=== PATIENT | female | born 1960 | race Caucasian/White ===

== ENCOUNTER 2017-02-01 12:02 | Inpatient (IN) | payer OTHER ==
[2017-02-01 12:41] VITALS: BMI 28.0
--- NOTE | 2017-02-01 17:16 | HP ---
COWS - Scale Resting Pulse: 1= ME 81-100 Sweatin= Chills/Flushing Restless Observation: 3= Extraneous Movement Pupil Size: 2= Moderately Dilated Bone or Joint Aches: 2= Severe Diffuse Aches Runny Nose/ Eye Tearin= Runny Nose/Eyes GI Upset > 30mins: 3= Vomiting/Diarrhea Tremor Observation: 2= Slight Tremor Visible Yawning Observation: 2= >3x During Session Anxiety or Irritability: 2=Irritable/Anxious Goose Flesh Skin: 0=Smooth Skin COWS Score: 20 CIWA Score - CIWA Score Nausea/Vomitin Muscle Tremors: 3 Anxiety: 3 Agitation: 3 Paroxysmal Sweats: 2 Orientation: 0-Oriented Tacttile Disturbances: 2-Mild Itch/Numbness/Burn Auditory Disturbances: 2-Mild Harshness/Frighten Visual Disturbances: 2-Mild Sensitivity Headache: 2-Mild CIWA-Ar Total Score: 22 Admission ROS BHS - HPI Chief Complaint: I NEED HELP TO STOP USING OXYCODONE AND ALCOHOL Allergies/Adverse Reactions: Allergies Allergy/AdvReac Type Severity Reaction Status Date / Time heparin Allergy Intermediate Verified 02/01/17 14:20 History of Present Illness: THIS 56 YEARS OLD WITH OXYCODDINE AND ALCOHOL DEPENDENCE,WITHDRAWAL SYMPTOM, LAST DETOX 01/20/17 [facility] SEIZURE LAST 20 YEARS AGO DEPRESSION NICOTINE DEPENDENCE LONGEST PERIOD OF SOBRIETY 2 YEARS Exam Limitations: No Limitations - Ebola screening Have you traveled outside of the country in the last 21 days: Yes Have you been sick,other than usual withdrawal symptoms: No - Review of Systems Constitutional: Chills, Diaphoresis, Loss of Appetite, Malaise, Night Sweats, Changes in sleep, Weakness EENT: reports: Tearing, Nose Congestion Respiratory: reports: No Symptoms reported (STHMA) Cardiac: reports: Palpitations GI: reports: Diarrhea, Nausea, Vomiting, Abdominal cramping : reports: No Symptoms Reported Musculoskeletal: reports: Back Pain, Joint Pain, Muscle Pain, Joint Stiffness Integumentary: reports: Dryness Neuro: reports: Headache, Tremors Endocrine: reports: No Symptoms Reported Hematology: reports: No Symptoms Reported Psychiatric: reports: Judgement Intact, Mood/Affect Appropiate, Orientated x3, Depressed Patient History - Patient Medical History Hx Anemia: No Hx Asthma: Yes (ON ALBUREOL INHALER) Hx Chronic Obstructive Pulmonary Disease (COPD): No Hx Cancer: No Hx Cardiac Disorders: No Hx Congestive Heart Failure: No Hx Hypertension: Yes (ON MED) Hx Hypercholesterolemia: Yes (ON MED) Hx Pacemaker: No HX Cerebrovascular Accident: No Hx Seizures: Yes (alcohol related once 20 yrs. ago) Hx Dementia: No Hx Diabetes: No Hx Gastrointestinal Disorders: Yes (colitis in 2015) Hx Liver Disease: Yes (FATTY LIVER) Hx Genitourinary Disorders: No Hx Sexually Transmitted Disorders: No Hx Renal Disease (ESRD): No Hx Thyroid Disease: No Hx Human Immunodeficiency Virus (HIV): No Hx Hepatitis C: No Hx Depression: Yes (ON MED) Hx Suicide Attempt: No Hx Bipolar Disorder: No Hx Schizophrenia: No Other Medical History: NO SUICIDAL,NO HOMICIDAL - Patient Surgical History Past Surgical History: Yes Hx Neurologic Surgery: No Hx Cataract Extraction: No Hx Cardiac Surgery: No Hx Lung Surgery: No Hx Breast Surgery: No Hx Breast Biopsy: No Hx Abdominal Surgery: No Hx Appendectomy: Yes (1977) Hx Cholecystectomy: No Hx Genitourinary Surgery: No Hx Section: No Hx Orthopedic Surgery: No Hx Hysterectomy: No Anesthesia Reaction: No - PPD History Previous Implant?: Yes Documented Results: Negative w/proof Implanted On Prior R Admission?: Yes Date: 09/22/16 Results: 0 mm PPD to be Administered?: No - Reproductive History Patient is a Female of Child Bearing Age (11 -55 yrs old): No Last Menstrual Period: 09/17/96 Patient : No - Smoking Cessation Smoking history: Current every day smoker Have you smoked in the past 12 months: Yes Aproximately how many cigarettes per day: 10 Cigars Per Day: 0 Hx Chewing Tobacco Use: No Initiated information on smoking cessation: Yes 'Breaking Loose' booklet given: 02/01/17 - Substance & Tx. History Hx Alcohol Use: Yes Hx Substance Use: Yes Substance Use Type: Alcohol, Opiates Hx Substance Use Treatment: Yes ([facility] 2 WEEKS AGO ?) - Substances Abused Oxycodone Route: Oral Frequency: Daily Amount used: 3-4 tabs. (10 mg.) Age of first use: 55 Date of Last Use: 01/30/17 Alcohol-four rita/vodka Route: Oral Frequency: Daily Amount used: 4 (24 oz.)/2 pts. Age of first use: 20 Date of Last Use: 01/31/17 Family Disease History - Family Disease History Family Disease History: Other: Father (ALCOHOL,) Admission Physical Exam [facility] - Vital Signs Vital Signs: Vital Signs - 24 hr 02/01/17 12:36 Temperature 98.6 F Pulse Rate 101 H Respiratory 18 Rate Blood Pressure 126/76 - Physical General Appearance: Yes: Moderate Distress, Tremorous, Irritable, Sweating, Anxious HEENTM: Yes: Hearing grossly Normal, Normal Voice, Pharynx Normal, Nasal Congestion Respiratory: Yes: Lungs Clear Neck: Yes: Within Normal Limits, Supple, Trachea in good position Breast: Yes: Breast Exam Deferred Cardiology: Yes: S1, S2, Tachycardia Abdominal: Yes: Within Normal Limits, Normal Bowel Sounds, Non Tender, Flat, Soft Genitourinary: Yes: Within Normal Limits Back: Yes: Normal Inspection, Muscle Spasm Musculoskeletal: Yes: full range of Motion, Back pain, Joint Stiffness, Muscle Pain Extremities: Yes: Normal Capillary Refill, Normal Range of Motion, Non-Tender, Tremors Neurological: Yes: attending anesthesiologist II-XII NML intact, Fully Oriented, Alert, Motor Strength 5/5 Integumentary: Yes: Dry Lymphatic: Yes: Within Normal Limits - Diagnostic (1) Alcohol dependence with withdrawal Current Visit: No Status: Chronic Qualifiers: Complication of substance-induced condition: uncomplicated Qualified Code(s): F10.230 - Alcohol dependence with withdrawal, uncomplicated (2) Hypercholesteremia Current Visit: No Status: Chronic Comment: "I DO NOT TAKE MEDICATION" (3) Hypertension Current Visit: No Status: Chronic Qualifiers: Hypertension type: essential hypertension Qualified Code(s): I10 - Essential (primary) hypertension (4) MDD (major depressive disorder) Current Visit: No Status: Chronic (5) Opioid dependence with withdrawal Current Visit: No Status: Chronic Comment: PERCOCET (6) Spinal stenosis in cervical region Current Visit: No Status: Chronic Comment: NEURONTIN (7) History of deep venous thrombosis (DVT) of distal vein of left lower extremity Current Visit: Yes Status: Acute Cleared for Admission [facility] - Detox or Rehab [facility] Level of Care: Medically Managed Detox Regimen/Protocol: Methadone/Librium [facility] Breath Alcohol Content Breath Alcohol Content: 0.142 Urine Pregancy Test - Result Urine Test Results: Negative- NO Line Present Urine Drug Screen - Results Drug Screen Negative: No Urine Drug Screen Results: BZO-Benzodiazepines, OXY-Oxycodone
[2017-02-01] MEDS ORDERED: LOPERAMIDE HCL 2 MG CAPSULE PO PRN (17:27)
[2017-02-01] MEDS ORDERED: MAGNESIUM CITRATE 300 ML BOTTLE PO PRN (17:27)
[2017-02-01] MEDS ORDERED: ACETAMINOPHEN 325 MG TABLET (FP) PO PRN (17:27)
[2017-02-01] MEDS ORDERED: IBUPROFEN 400 MG TABLET (FP) PO PRN (17:27)
[2017-02-01] MEDS ORDERED: MAGNESIUM HYDROX 2400MG/30ML ORAL SUSPENSION 30 ML CUP PO PRN (17:27)
[2017-02-01] MEDS ORDERED: MAG HYDROX/AL HYDROX/SIMETH 30 ML UNIT-DOSE CUP PO PRN (17:27)
[2017-02-01] MEDS ORDERED: MENTHOL/PHENOL 1 EACH UD MM PRN (17:27)
[2017-02-01] MEDS ORDERED: P-EPHED 60MG/TRIPROLIDI 2.5MG TABLET PO PRN (17:27)
[2017-02-01] MEDS ORDERED: guaiFENesin/D-METHORPHAN HB 10 ML UNIT-DOSE CUPS PO PRN (17:27)
[2017-02-01] MEDS ORDERED: ALBUTEROL SO4 6.7 GM HFA INHALER IH PRN (17:29)
[2017-02-01] MEDS ORDERED: chlordiazePOXIDE HCL 25 MG CAPSULE PO ONE (18:00)
[2017-02-01] MEDS ORDERED: METHADONE HCL 10 MG TABLET (FOR DETOX USE ONLY) PO ONE ×2 (18:00→23:00)
[2017-02-01] MEDS: SODIUM CHLORIDE NASAL SPRAY 44 ML BOTTLE NS PRN (19:32)
[2017-02-01] MEDS: chlordiazePOXIDE HCL 25 MG CAPSULE PO PRN (19:32)
[2017-02-01 20:00] LABS: URINE APPEARANCE CLOUDY; URINE BILIRUBIN NEGATIVE (NEGATIVE); URINE COLOR YELLOW; URINE GLUCOSE (UA) NEGATIVE (NEGATIVE); URINE KETONE NEGATIVE (NEGATIVE); URINE LEUK ESTERASE NEGATIVE (NEGATIVE); URINE NITRITE NEGATIVE (NEGATIVE); URINE UROBILINOGEN NEGATIVE E.U./dl (0.2-1.0)
[2017-02-01 20:03] LABS: URINE BLOOD 1+ (NEGATIVE); URINE PROTEIN 1+ (NEGATIVE)
[2017-02-01 20:15] LABS: URINE BACTERIA RARE /hpf (NONE SEEN); URINE MUCUS RARE; URINE RBC 1 /hpf (0-3); URINE WBC 2 /hpf (3-5)
[2017-02-01] MEDS: ATORVASTATIN CA 40 MG TABLET (FP) PO SCH (22:33)
[2017-02-01] MEDS: THIAMINE HCL 100 MG TABLET (FP) PO SCH (22:33)
[2017-02-01] MEDS: diphenhydrAMINE HCL 50 MG CAPSULE PO PRN (22:33)
[2017-02-01] MEDS: chlordiazePOXIDE HCL 25 MG CAPSULE PO SCH (22:33)
[2017-02-02] MEDS: chlordiazePOXIDE HCL 25 MG CAPSULE PO SCH ×4 (05:46→22:10)
[2017-02-02] MEDS: SODIUM CHLORIDE NASAL SPRAY 44 ML BOTTLE NS PRN (05:48)
[2017-02-02] MEDS: chlordiazePOXIDE HCL 25 MG CAPSULE PO PRN ×2 (07:48→13:03)
[2017-02-02] MEDS ORDERED: METHADONE HCL 10 MG TABLET (FOR DETOX USE ONLY) PO SCH (10:00)
--- NOTE | 2017-02-02 10:09 | PN ---
S CIWA - CIWA Score Nausea/Vomitin Muscle Tremors: 3 Anxiety: 3 Agitation: 3 Paroxysmal Sweats: 1-Minimal Palms Moist Orientation: 0-Oriented Tacttile Disturbances: 1-Very Mild Itch/Numbness Auditory Disturbances: 1-Very Mild Visual Disturbances: 1-Very Mild Sensitivity Headache: 2-Mild CIWA-Ar Total Score: 18 BHS COWS - Scale Resting Pulse: 1= [place] 81-100 Sweatin= Chills/Flushing Restless Observation: 3= Extraneous Movement Pupil Size: 1= Pupils >than Normal Bone or Joint Aches: 2= Severe Diffuse Aches Runny Nose/ Eye Tearin= Runny Nose/Eyes GI Upset > 30mins: 2= Nausea/Diarrhea Tremor Observation of Outstretched Hands: 2= Slight Tremor Visible Yawning Observation: 1= 1-2x During Session Anxiety or Irritability: 2=Irritable/Anxious Goose Flesh Skin: 0=Smooth Skin COWS Score: 17 S Progress Note (SOAP) Subjective: ALERT,IRRITABLE,ANXIOUS,INTERRUPTED SLEEP,TREMOR,PAIN IN THE BODY AND BACK Objective: 02/02/17 10:07 Vital Signs Temperature 97.1 F L 02/02/17 09:49 Pulse Rate 768 H 02/02/17 09:49 Respiratory Rate 18 02/02/17 09:49 Blood Pressure 126/79 02/02/17 09:49 O2 Sat by Pulse Oximetry (%) EKG NSR,NORMAL ECG Laboratory Last Values Urine Color Yellow 02/01/17 19:45 Urine Appearance Cloudy 02/01/17 19:45 Urine pH 6.0 (5.0-8.0) 02/01/17 19:45 Ur Specific [place] 1.016 (1.001-1.035) 02/01/17 19:45 Urine Protein 1+ (NEGATIVE) H 02/01/17 19:45 Urine Glucose (UA) Negative (NEGATIVE) 02/01/17 19:45 Urine Ketones Negative (NEGATIVE) 02/01/17 19:45 Urine Blood 1+ (NEGATIVE) H 02/01/17 19:45 Urine Nitrite Negative (NEGATIVE) 02/01/17 19:45 Urine Bilirubin Negative (NEGATIVE) 02/01/17 19:45 Urine Urobilinogen Negative E.U./dl (0.2-1.0) 02/01/17 19:45 Ur Leukocyte Esterase Negative (NEGATIVE) 02/01/17 19:45 Urine RBC 1 /hpf (0-3) 02/01/17 19:45 Urine WBC 2 /hpf (3-5) 02/01/17 19:45 Ur Epithelial Cells Moderate /hpf (FEW) 02/01/17 19:45 Urine Bacteria Rare /hpf (NONE SEEN) 02/01/17 19:45 Urine Mucus Rare 02/01/17 19:45 LABS PENDING Assessment: 02/02/17 10:08 WITHDRAWAL SYMPTOM Plan: CONTINUE DETOX
[2017-02-02] MEDS: amLODIPine BESYLATE 10 MG TABLET (FP) PO SCH (10:19)
[2017-02-02] MEDS: PRENATAL VITAMINS W/ FOLIC ACID TABLET (FP) PO SCH (10:19)
[2017-02-02] MEDS: ASPIRIN COATED 81 MG TABLET.EC PO SCH (10:19)
[2017-02-02] MEDS: NICOTINE 21 MG/24 HOURS TOPICAL PATCH TD SCH (10:22)
[2017-02-02 10:32] LABS: MCH 32.8 pg (25.7-33.7); MCHC 33.3 g/dl (32.0-36.0); MEAN CELL VOLUME 98.4 fl (80-96); MEAN PLT VOLUME 8.6 fl (7.5-11.1); PLATELET COUNT 378 K/MM3 (134-434); RDW 15.3 % (11.6-15.6); WHITE BLOOD COUNT 9.6 K/mm3 (4.0-10.0)
[2017-02-02 11:19] LABS: ALK PHOS 75 U/L (45-117); ANION GAP 13 (8-16); BILIRUBIN,TOTAL 0.5 mg/dL (0.2-1.0); CALCIUM 8.3 mg/dL (8.5-10.1); CO2 26 mmol/L (21-32); CREATININE 0.8 mg/dL (0.55-1.02); GLUCOSE,RANDOM 174 mg/dL (74-106); SGOT/AST 32 U/L (15-37); SGPT/ALT 33 U/L (12-78); TOT PROT 7.6 g/dl (6.4-8.2)
--- NOTE | 2017-02-02 11:55 | PN ---
BHS Progress Note Note: INITIAL GLUCOSE 174 WILL GIVE GLUCERNA 1 CAN PO BID INSTEAD OF ENSURE
--- NOTE | 2017-02-02 13:35 | CONSULT ---
[facility] Psychiatric Consult - Data Date of interview: 02/02/17 Admission source: [facility] Identifying data: Readmission to [facility] for this 56 y/o female seeking detox treatment on for opioid and alcohol dependence.Patient is without children,currently homeless,unemployed and supported on food stamps. Substance Abuse History: - Smoking Cessation. Smoking history: Current every day smoker. Have you smoked in the past 12 months: Yes. Aproximately how many cigarettes per day: 10. Cigars Per Day: 0. Hx Chewing Tobacco Use: No. Initiated information on smoking cessation: Yes. 'Breaking Loose' booklet given : 02/01/17. - Substance & Tx. History. Hx Alcohol Use: Yes. Hx Substance Use : Yes. Substance Use Type: Alcohol, Opiates. Hx Substance Use Treatment: Yes ( [facility] 2 WEEKS AGO ?). - Substances Abused. Oxycodone. Route: Oral. Frequency: Daily. Amount used: 3-4 tabs. (10 mg.). Age of first use: 55. Date of Last Use: 01/30/17. Alcohol-four rita/vodka. Route: Oral. Frequency: Daily. Amount used: 4 (24 oz.)/2 pts. Age of first use: 20. Date of Last Use: 01/31/17. Confirmed by patient. Medical History: Hypertension,withdrawal-related sizures,bronchial asthma, COPD, psoriasis,fatty liver,hypercholesterolemia,colitis,spinal stenosis and a history of CVA (no residual effects) in 2012. Psychiatric History: Onset of psychiatric illness :late 20's.Diagnosed with MDD.Currently prescribed celexa 20 mg/day.No OPD care providers.Ms Belcher admits to non-adherence to psychiatric aftercare.She relies on emergency room visits for scripts.Past psychiatric hospitalizations at [facility] and [facility].Distant history of suicide attempt via overdose with medications (years ago). Physical/Sexual Abuse/Trauma History: Patient denies. Mental Status Exam - Mental Status Exam Alert and Oriented to: Time, Place, Person Cognitive Function: Good Patient Appearance: Disheveled Mood: Withdrawn, Apprehensive, Hopeful Affect: Mood Congruent Patient Behavior: Fatigued, Appropriate, Cooperative Speech Pattern: Clear Voice Loudness: Normal Thought Process: Goal Oriented Thought Disorder: Not Present Hallucinations: Denies Suicidal Ideation: Denies Homicidal Ideation: Denies Insight/Judgement: Poor Sleep: Poorly, Difficulty falling asleep (requesting benadryl) Appetite: Fair Muscle strength/Tone: Normal Gait/Station: Normal Psychiatric Findings - Problem List ([place] 1, 2,3) (1) Alcohol dependence with withdrawal Current Visit: Yes Status: Acute Qualifiers: Complication of substance-induced condition: uncomplicated Qualified Code(s): F10.230 - Alcohol dependence with withdrawal, uncomplicated (2) Opioid dependence with withdrawal Current Visit: Yes Status: Acute Comment: PERCOCET (3) Nicotine dependence Current Visit: Yes Status: Acute Qualifiers: Nicotine product type: cigarettes Substance use status: uncomplicated Qualified Code(s): F17.210 - Nicotine dependence, cigarettes, uncomplicated (4) MDD (major depressive disorder) Current Visit: Yes Status: Acute (5) Hypercholesteremia Current Visit: Yes Status: Chronic Comment: "I DO NOT TAKE MEDICATION" (6) Hypertension Current Visit: Yes Status: Chronic Qualifiers: Hypertension type: essential hypertension Qualified Code(s): I10 - Essential (primary) hypertension (7) Spinal stenosis in cervical region Current Visit: Yes Status: Chronic Comment: NEURONTIN (8) Colitis Current Visit: No Status: Acute (9) COPD (chronic obstructive pulmonary disease) Current Visit: Yes Status: Chronic Qualifiers: COPD type: emphysema Emphysema type: unilateral Qualified Code(s ): J43.0 - Unilateral pulmonary emphysema [MacLeod's syndrome] (10) Fatty liver Current Visit: Yes Status: Chronic (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
--- NOTE | 2017-02-02 18:23 | EKG ---
Test Reason : Blood Pressure : / mmHG Vent. Rate : 068 BPM Atrial Rate : 068 BPM P-R Int : 160 ms QRS Dur : 078 ms QT Int : 406 ms P-R-T Axes : 059 036 056 degrees QTc Int : 431 ms NORMAL SINUS RHYTHM NORMAL ECG WHEN COMPARED WITH ECG OF 01-FEB-2017 17:48, PREMATURE VENTRICULAR COMPLEXES ARE NO LONGER PRESENT VENT. RATE HAS DECREASED BY 46 BPM Confirmed by RANDALL SOLIS, SHARIF ([id number]) on 02/02/2017 6:22:45 PM Referred By: Confirmed By:SHARIF PEREIRA MD
--- NOTE | 2017-02-02 18:30 | EKG ---
Test Reason : Blood Pressure : / mmHG Vent. Rate : 114 BPM Atrial Rate : 114 BPM P-R Int : 154 ms QRS Dur : 078 ms QT Int : 332 ms P-R-T Axes : 074 032 071 degrees QTc Int : 457 ms SINUS TACHYCARDIA WITH OCCASIONAL PREMATURE VENTRICULAR COMPLEXES OTHERWISE NORMAL ECG NO PREVIOUS ECGS AVAILABLE Confirmed by RANDALL SOLIS, SHARIF ([id number]) on 02/02/2017 6:29:52 PM Referred By: Confirmed By:SHARIF PEREIRA MD
[2017-02-02] MEDS: ATORVASTATIN CA 40 MG TABLET (FP) PO SCH (22:10)
[2017-02-02] MEDS: diphenhydrAMINE HCL 50 MG CAPSULE PO PRN (22:10)
[2017-02-02] MEDS: THIAMINE HCL 100 MG TABLET (FP) PO SCH (22:11)
[2017-02-03] MEDS: diphenhydrAMINE HCL 50 MG CAPSULE PO PRN ×2 (00:26→22:09)
[2017-02-03] MEDS: chlordiazePOXIDE HCL 25 MG CAPSULE PO PRN ×2 (00:27→12:00)
[2017-02-03] MEDS: chlordiazePOXIDE HCL 25 MG CAPSULE PO SCH ×3 (05:19→17:27)
[2017-02-03] MEDS: METHADONE HCL 5 MG TABLET (FOR DETOX USE ONLY) PO SCH (10:12)
[2017-02-03] MEDS: PRENATAL VITAMINS W/ FOLIC ACID TABLET (FP) PO SCH (10:12)
[2017-02-03] MEDS: CITALOPRAM HYDROBROMIDE 20 MG TABLET (FP) PO SCH (10:13)
[2017-02-03] MEDS: ASPIRIN COATED 81 MG TABLET.EC PO SCH (10:13)
[2017-02-03] MEDS: amLODIPine BESYLATE 10 MG TABLET (FP) PO SCH (10:13)
[2017-02-03] MEDS: NICOTINE 21 MG/24 HOURS TOPICAL PATCH TD SCH (10:13)
[2017-02-03] MEDS: SODIUM CHLORIDE NASAL SPRAY 44 ML BOTTLE NS PRN (12:02)
--- NOTE | 2017-02-03 14:09 | PN ---
S CIWA - CIWA Score Nausea/Vomitin Muscle Tremors: 3 Anxiety: 3 Agitation: 3 Paroxysmal Sweats: No Perspiration Orientation: 0-Oriented Tacttile Disturbances: 1-Very Mild Itch/Numbness Auditory Disturbances: 0-None Visual Disturbances: 0-None Headache: 2-Mild CIWA-Ar Total Score: 14 BHS COWS - Scale Resting Pulse: 0= [place] 80 or Below Sweatin= Chills/Flushing Restless Observation: 3= Extraneous Movement Pupil Size: 0= Normal to Room Light Bone or Joint Aches: 1= Mild Discomfort Runny Nose/ Eye Tearin= Runny Nose/Eyes GI Upset > 30mins: 3= Vomiting/Diarrhea Tremor Observation of Outstretched Hands: 2= Slight Tremor Visible Yawning Observation: 0= None Anxiety or Irritability: 2=Irritable/Anxious Goose Flesh Skin: 0=Smooth Skin COWS Score: 14 S Progress Note (SOAP) Subjective: Anxious, nauseas, diarrhea, tremor, restless, interrupted sleep; c/o psoriasis on hands and requesting hydrocortisone cream Objective: 02/03/17 14:06 Last Vital Signs Temp Pulse Resp BP Pulse Ox 98.2 F 75 18 111/67 02/03/17 13:44 02/03/17 13:44 02/03/17 13:44 02/03/17 13:44 Laboratory Tests 02/01/17 02/02/17 02/02/17 19:45 06:20 06:20 WBC 9.6 RBC 4.22 Hgb 13.8 Hct 41.5 MCV 98.4 H MCHC 33.3 RDW 15.3 Plt Count 378 D MPV 8.6 Sodium 139 Potassium 3.6 Chloride 100 Carbon Dioxide 26 Anion Gap 13 BUN 17 D Creatinine 0.8 Creat Clearance w eGFR > 60 Random Glucose 174 H D Calcium 8.3 L Total Bilirubin 0.5 D AST 32 D ALT 33 D Alkaline Phosphatase 75 D Total Protein 7.6 Albumin 4.0 Urine Color Yellow Urine Appearance Cloudy Urine pH 6.0 Ur Specific [place] 1.016 Urine Protein 1+ H Urine Glucose (UA) Negative Urine Ketones Negative Urine Blood 1+ H Urine Nitrite Negative Urine Bilirubin Negative Urine Urobilinogen Negative Ur Leukocyte Esterase Negative Urine RBC 1 Urine WBC 2 Ur Epithelial Cells Moderate Urine Bacteria Rare Urine Mucus Rare RPR Titer 02/02/17 06:20 WBC RBC Hgb Hct MCV MCHC RDW Plt Count MPV Sodium Potassium Chloride Carbon Dioxide Anion Gap BUN Creatinine Creat Clearance w eGFR Random Glucose Calcium Total Bilirubin AST ALT Alkaline Phosphatase Total Protein Albumin Urine Color Urine Appearance Urine pH Ur Specific [place] Urine Protein Urine Glucose (UA) Urine Ketones Urine Blood Urine Nitrite Urine Bilirubin Urine Urobilinogen Ur Leukocyte Esterase Urine RBC Urine WBC Ur Epithelial Cells Urine Bacteria Urine Mucus RPR Titer Nonreactive Labs noted: UA with 1+ protein and 1+ blood c/o psoriasis on hands and requesting hydrocortisone cream Assessment: 02/03/17 14:09 Withdrawal symptoms Noted with proteinuria and hematuria c/o psoriasis on hands Plan: Continue detox Proteinuria and hematuria: encouraged to drink lots of water, repeat UA Psoriasis on hands: hydrocortisone cream 1% bid to affected areas on hands
[2017-02-03] MEDS: THIAMINE HCL 100 MG TABLET (FP) PO SCH (22:08)
[2017-02-03] MEDS: chlordiazePOXIDE 5 MG CAPSULE PO SCH (22:09)
[2017-02-03] MEDS: ATORVASTATIN CA 40 MG TABLET (FP) PO SCH (22:09)
[2017-02-03] MEDS: HYDROCORTISONE 0.5% TOPICAL CREAM 30 GM TUBE TP SCH (22:11)
[2017-02-04] MEDS: chlordiazePOXIDE HCL 25 MG CAPSULE PO PRN ×2 (00:45→14:15)
[2017-02-04] MEDS: diphenhydrAMINE HCL 50 MG CAPSULE PO PRN ×2 (00:45→22:22)
[2017-02-04] MEDS: chlordiazePOXIDE 5 MG CAPSULE PO SCH ×3 (05:28→17:20)
[2017-02-04] MEDS: SODIUM CHLORIDE NASAL SPRAY 44 ML BOTTLE NS PRN ×2 (05:30→22:20)
--- NOTE | 2017-02-04 09:38 | PN ---
BHS Progress Note (SOAP) Subjective: shakes sweats interrupted sleep Objective: 02/04/17 09:37 Vital Signs Temperature 97.9 F 02/04/17 05:51 Pulse Rate 66 02/04/17 05:51 Respiratory Rate 16 02/04/17 05:51 Blood Pressure 114/72 02/04/17 05:51 O2 Sat by Pulse Oximetry (%) awake/alert ambulating no acute distress Assessment: 02/04/17 09:37 withdrawal sx Plan: continue detox increase fluids
[2017-02-04] MEDS: ASPIRIN COATED 81 MG TABLET.EC PO SCH (10:37)
[2017-02-04] MEDS: PRENATAL VITAMINS W/ FOLIC ACID TABLET (FP) PO SCH (10:37)
[2017-02-04] MEDS: CITALOPRAM HYDROBROMIDE 20 MG TABLET (FP) PO SCH (10:38)
[2017-02-04] MEDS: METHADONE HCL 5 MG TABLET (FOR DETOX USE ONLY) PO SCH (10:38)
[2017-02-04] MEDS: amLODIPine BESYLATE 10 MG TABLET (FP) PO SCH (10:38)
[2017-02-04] MEDS: NICOTINE 21 MG/24 HOURS TOPICAL PATCH TD SCH (10:39)
[2017-02-04] MEDS: HYDROCORTISONE 0.5% TOPICAL CREAM 30 GM TUBE TP SCH ×2 (10:42→22:19)
[2017-02-04] MEDS: chlordiazePOXIDE HCL 10 MG CAPSULE PO SCH (22:19)
[2017-02-04] MEDS: ATORVASTATIN CA 40 MG TABLET (FP) PO SCH (22:19)
[2017-02-04] MEDS: THIAMINE HCL 100 MG TABLET (FP) PO SCH (22:20)
[2017-02-05] MEDS: diphenhydrAMINE HCL 50 MG CAPSULE PO PRN (00:35)
[2017-02-05] MEDS: chlordiazePOXIDE HCL 10 MG CAPSULE PO SCH ×3 (05:20→17:24)
[2017-02-05] MEDS ORDERED: chlordiazePOXIDE 5 MG CAPSULE ONE (08:57)
--- NOTE | 2017-02-05 09:37 | PN ---
S Progress Note (SOAP) Subjective: ALERT,IRRITABLE,ANXIOUS,INTERRUPTED SLEEP Objective: 02/05/17 09:37 Vital Signs Temperature 99 F 02/05/17 05:48 Pulse Rate 72 02/05/17 05:48 Respiratory Rate 18 02/05/17 05:48 Blood Pressure 103/60 02/05/17 05:48 O2 Sat by Pulse Oximetry (%) Assessment: 02/05/17 09:37 WITHDRAWAL SYMPTOM Plan: CONTINUE DETOX,DISCHARGE IN AM
[2017-02-05] MEDS ORDERED: METHADONE HCL 10 MG TABLET (FOR DETOX USE ONLY) PO SCH (10:00)
[2017-02-05] MEDS: PRENATAL VITAMINS W/ FOLIC ACID TABLET (FP) PO SCH (10:47)
[2017-02-05] MEDS: amLODIPine BESYLATE 10 MG TABLET (FP) PO SCH (10:48)
[2017-02-05] MEDS: ASPIRIN COATED 81 MG TABLET.EC PO SCH (10:48)
[2017-02-05] MEDS: CITALOPRAM HYDROBROMIDE 20 MG TABLET (FP) PO SCH (10:48)
[2017-02-05] MEDS: NICOTINE 21 MG/24 HOURS TOPICAL PATCH TD SCH (10:49)
[2017-02-05] MEDS: HYDROCORTISONE 0.5% TOPICAL CREAM 30 GM TUBE TP SCH ×2 (10:53→22:04)
[2017-02-05] MEDS: hydrOXYzine PAMOATE 50 MG CAPSULE (FP) PO PRN ×2 (17:24→22:04)
[2017-02-05] MEDS: ATORVASTATIN CA 40 MG TABLET (FP) PO SCH (22:04)
[2017-02-05] MEDS: THIAMINE HCL 100 MG TABLET (FP) PO SCH (22:04)
[2017-02-05] MEDS: SODIUM CHLORIDE NASAL SPRAY 44 ML BOTTLE NS PRN (22:05)
[2017-02-06] MEDS ORDERED: METHADONE HCL 5 MG TABLET (FOR DETOX USE ONLY) PO SCH (06:00)
--- NOTE | 2017-02-06 08:34 | DS ---
[facility] Detox Discharge Summary Admission Date: 02/01/17 Discharge Date: 02/06/17 - History Present History: Alcohol Dependence, Opioid Dependence - Physical Exam Results Vital Signs: Vital Signs Temperature 97.7 F 02/06/17 06:37 Pulse Rate 67 02/06/17 06:37 Respiratory Rate 16 02/06/17 06:37 Blood Pressure 98/65 02/06/17 06:37 O2 Sat by Pulse Oximetry (%) - Treatment Hospital Course: Detox Protocol Followed, Detoxed Safely, Responded well, Discharged Condition Good, Rehab Referral Accepted - Medication Discharge Medications: Ambulatory Orders Citalopram Hydrobromide [Celexa -] 20 mg PO DAILY 09/20/16 Aspirin [Aspirin EC] 81 mg PO DAILY #30 tablet. 09/25/16 Albuterol Sulfate Inhaler - [Ventolin Hfa Inhaler -] 2 inh PO Q4H PRN 02/01/17 Amlodipine Besylate [Norvasc -] 10 mg PO DAILY 02/01/17 Atorvastatin Ca [Lipitor] 40 mg PO HS 02/01/17 Folic Acid - 1 mg PO DAILY 02/01/17 Hydrocortisone 1% Ointment [Hytone 1% Ointment -] 1 applic TP BID 02/01/17 Multivitamins [Tab-A-Vit -] 1 tab PO DAILY 02/01/17 Citalopram Hydrobromide [Celexa -] 20 mg PO DAILY #30 tablet 02/02/17 - Diagnosis (1) Alcohol dependence with withdrawal Current Visit: Yes Status: Chronic Qualifiers: Complication of substance-induced condition: uncomplicated Qualified Code(s): F10.230 - Alcohol dependence with withdrawal, uncomplicated (2) History of deep venous thrombosis (DVT) of distal vein of left lower extremity Current Visit: No Status: Resolved (3) MDD (major depressive disorder) Current Visit: Yes Status: Acute (4) Nicotine dependence Current Visit: Yes Status: Chronic Qualifiers: Nicotine product type: cigarettes Substance use status: uncomplicated Qualified Code(s): F17.210 - Nicotine dependence, cigarettes, uncomplicated (5) Opioid dependence with withdrawal Current Visit: Yes Status: Chronic (6) COPD (chronic obstructive pulmonary disease) Current Visit: Yes Status: Chronic Qualifiers: COPD type: emphysema Emphysema type: unilateral Qualified Code(s ): J43.0 - Unilateral pulmonary emphysema [MacLeod's syndrome] (7) Fatty liver Current Visit: Yes Status: Chronic (8) Hypercholesteremia Current Visit: Yes Status: Chronic (9) Hypertension Current Visit: Yes Status: Chronic Qualifiers: Hypertension type: essential hypertension Qualified Code(s): I10 - Essential (primary) hypertension (10) Insomnia Current Visit: Yes Status: Chronic (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
[2017-02-06] MEDS: hydrOXYzine PAMOATE 50 MG CAPSULE (FP) PO PRN (10:17)
[2017-02-06] MEDS: NICOTINE 21 MG/24 HOURS TOPICAL PATCH TD SCH (10:18)
[2017-02-06] MEDS: PRENATAL VITAMINS W/ FOLIC ACID TABLET (FP) PO SCH (10:18)
[2017-02-06] MEDS: CITALOPRAM HYDROBROMIDE 20 MG TABLET (FP) PO SCH (10:18)
[2017-02-06] MEDS: ASPIRIN COATED 81 MG TABLET.EC PO SCH (10:18)
[2017-02-06] MEDS: HYDROCORTISONE 0.5% TOPICAL CREAM 30 GM TUBE TP SCH (10:18)
[2017-02-06] MEDS: amLODIPine BESYLATE 10 MG TABLET (FP) PO SCH (10:18)
[2017-02-06 10:25] VITALS: BP 102/69; PULSE 63; TEMP 98.4
== END 2017-02-06 10:35 | disposition home or self-care (01) | DRG 773 ==
LOC: YASAS 12:02 → Y6N 15:04
PROVIDERS: ADMIT Internal Medicine; ATTEND Internal Medicine
PROC: HZ2ZZZZ Detoxification Services for Substance Abuse Treatment (ICD-10-PCS; principal; 2017-02-01)
DX: F11.23 Opioid dependence with withdrawal (principal); F10.230 Alcohol dependence with withdrawal, uncomplicated; F17.210 Nicotine dependence, cigarettes, uncomplicated; F33.9 Major depressive disorder, recurrent, unspecified; F19.24 Other psychoactive substance dependence with psychoactive substance-induced mood disorder; F41.8 Other specified anxiety disorders; J45.909 Unspecified asthma, uncomplicated; J43.0 Unilateral pulmonary emphysema [MacLeod's syndrome]; K76.0 Fatty (change of) liver, not elsewhere classified; E78.00 Pure hypercholesterolemia, unspecified; G47.00 Insomnia, unspecified; L40.9 Psoriasis, unspecified; M48.02 Spinal stenosis, cervical region; R80.9 Proteinuria, unspecified; R31.9 Hematuria, unspecified; I10 Essential (primary) hypertension; Z86.718 Personal history of other venous thrombosis and embolism; Z86.69 Personal history of other diseases of the nervous system and sense organs; Z86.73 Personal history of transient ischemic attack (TIA), and cerebral infarction without residual deficits; Z87.19 Personal history of other diseases of the digestive system
CPT/HCPCS: 36415; 80053; 81003; 81015; 85027; 86593; 93005; 93010

== ENCOUNTER 2020-11-30 09:41 | Inpatient (IN) | payer OTHER ==
[2020-11-30 11:22] VITALS: BMI 28.3
[2020-11-30] MEDS ORDERED: NICOTINE POLACRILEX 2 MG GUM BUC PRN (12:20)
[2020-11-30] MEDS ORDERED: METHOCARBAMOL 500 MG TABLET PO PRN (12:20)
[2020-11-30] MEDS ORDERED: MAG HYDROX/AL HYDROX/SIMETH 30 ML UNIT-DOSE CUP PO PRN (12:20)
[2020-11-30] MEDS ORDERED: MENTHOL/PHENOL 1 EACH UD MM PRN (12:20)
[2020-11-30] MEDS ORDERED: MAGNESIUM HYDROX 2400MG/30ML ORAL SUSPENSION 30 ML CUP PO PRN (12:20)
[2020-11-30] MEDS ORDERED: MAGNESIUM CITRATE 300 ML BOTTLE PO PRN (12:20)
[2020-11-30] MEDS ORDERED: BISMUTH SUBSALICYLATE 524 MG/30 ML UD PO PRN (12:20)
[2020-11-30] MEDS ORDERED: ONDANSETRON *ODT* 4 MG TABLET SL PRN (12:20)
[2020-11-30] MEDS ORDERED: IBUPROFEN 400 MG TABLET (FP) PO PRN (12:20)
[2020-11-30] MEDS ORDERED: ACETAMINOPHEN 325 MG TABLET (FP) PO PRN ×2 (12:20)
[2020-11-30] MEDS ORDERED: ALBUTEROL SO4 HFA INHALER IH PRN (12:23)
[2020-11-30] MEDS ORDERED: ACETAMINOPHEN 325 MG TABLET (FP) ONE (13:09)
[2020-11-30] MEDS: chlordiazePOXIDE HCL 25 MG CAPSULE PO PRN ×2 (13:13→15:37)
[2020-11-30] MEDS ORDERED: LIDOCAINE 5% TOPICAL PATCH TP SCH (13:45)
[2020-11-30] MEDS: hydrOXYzine PAMOATE 25 MG CAPSULE (FP) PO SCH ×2 (13:55→18:00)
[2020-11-30] MEDS ORDERED: MELATONIN 5 MG TABLETS PO PRN (14:26)
[2020-11-30] MEDS ORDERED: chlordiazePOXIDE HCL 25 MG CAPSULE PO SCH (17:00)
[2020-11-30 17:38] LABS: HEMATOCRIT 38.5 % (32.4-45.2); HEMOGLOBIN 12.8 GM/dL (10.7-15.3); MCH 32.5 pg (25.7-33.7); MCHC 33.2 g/dl (32.0-36.0); MEAN CELL VOLUME 97.8 fl (80-96); MEAN PLT VOLUME 8.5 fl (7.5-11.1); PLATELET COUNT 325 K/MM3 (134-434); RBC 3.94 M/mm3 (3.60-5.2); RDW 14.8 % (11.6-15.6); WHITE BLOOD COUNT 11.9 K/mm3 (4.0-10.0)
[2020-11-30 17:39] LABS: POTASSIUM 3.7 mmol/L (3.5-5.1)
[2020-11-30 17:45] LABS: ALBUMIN 3.9 g/dl (3.4-5.0); CALCIUM 9.2 mg/dL (8.5-10.1)
[2020-11-30 17:48] LABS: BILIRUBIN,TOTAL 0.6 mg/dL (0.2-1); TOT PROT 7.9 g/dl (6.4-8.2)
[2020-11-30 19:36] VITALS: BP 155/90; PULSE 101; TEMP 95.7
[2020-11-30] MEDS ORDERED: MELATONIN 5 MG TABLETS PO SCH (22:00)
[2020-11-30] MEDS ORDERED: ATORVASTATIN CA 40 MG TABLET (FP) PO SCH (22:00)
[2020-11-30] MEDS ORDERED: THIAMINE HCL 100 MG TABLET (FP) PO SCH (22:00)
[2020-11-30] MEDS ORDERED: LIDOCAINE PATCH REMOVAL MC SCH (22:00)
[2020-12-01] MEDS ORDERED: CITALOPRAM HYDROBROMIDE 20 MG TABLET PO SCH (10:00)
[2020-12-01] MEDS ORDERED: PRENATAL VITAMINS W/ FOLIC ACID TABLET (FP) PO SCH (10:00)
[2020-12-01] MEDS ORDERED: NICOTINE 14 MG/24 HOURS TOPICAL PATCH TD SCH (10:00)
[2020-12-01] MEDS ORDERED: ASPIRIN COATED 81 MG TABLET.EC PO SCH (10:00)
[2020-12-01] MEDS ORDERED: NIFEdipine E.R. 30 MG TABLET PO SCH (10:00)
[2020-12-02] MEDS ORDERED: chlordiazePOXIDE HCL 25 MG CAPSULE PO SCH (05:00)
[2020-12-03] MEDS ORDERED: chlordiazePOXIDE HCL 10 MG CAPSULE PO PRN
[2020-12-03] MEDS ORDERED: chlordiazePOXIDE HCL 10 MG CAPSULE PO SCH (05:00)
[2020-12-04] MEDS ORDERED: chlordiazePOXIDE HCL 10 MG CAPSULE PO SCH (05:00)
[2020-12-05] MEDS ORDERED: chlordiazePOXIDE HCL 10 MG CAPSULE PO ONE (05:00)
== END 2020-11-30 19:35 | disposition left against medical advice (07) | DRG 770 ==
LOC: YASAS 09:41 → Y6N 13:22
PROVIDERS: ADMIT Allergy & Immunology; ATTEND Allergy & Immunology
PROC: HZ2ZZZZ Detoxification Services for Substance Abuse Treatment (ICD-10-PCS; principal; 2020-11-30)
DX: F11.23 Opioid dependence with withdrawal (principal); F10.230 Alcohol dependence with withdrawal, uncomplicated; F13.230 Sedative, hypnotic or anxiolytic dependence with withdrawal, uncomplicated; F17.210 Nicotine dependence, cigarettes, uncomplicated; F19.280 Other psychoactive substance dependence with psychoactive substance-induced anxiety disorder; F19.282 Other psychoactive substance dependence with psychoactive substance-induced sleep disorder; F33.9 Major depressive disorder, recurrent, unspecified; I10 Essential (primary) hypertension; J43.0 Unilateral pulmonary emphysema [MacLeod's syndrome]; L30.8 Other specified dermatitis; M48.02 Spinal stenosis, cervical region; M54.5 Low back pain; G89.29 Other chronic pain; G47.00 Insomnia, unspecified; Z86.718 Personal history of other venous thrombosis and embolism
CPT/HCPCS: 36415; 80053; 85027; 86780; 93005; 93010; C9803; U0003

== ENCOUNTER 2021-02-13 09:59 | Inpatient (IN) | payer OTHER ==
[2021-02-13 10:51] VITALS: BMI 28.3
[2021-02-13] MEDS ORDERED: ALBUTEROL SO4 HFA INHALER IH PRN (11:15)
[2021-02-13] MEDS ORDERED: MAG HYDROX/AL HYDROX/SIMETH 30 ML UNIT-DOSE CUP PO PRN (11:16)
[2021-02-13] MEDS ORDERED: BISMUTH SUBSALICYLATE 524 MG/30 ML UD PO PRN (11:16)
[2021-02-13] MEDS ORDERED: MAGNESIUM CITRATE 300 ML BOTTLE PO PRN (11:16)
[2021-02-13] MEDS ORDERED: NICOTINE POLACRILEX 2 MG GUM BUC PRN (11:16)
[2021-02-13] MEDS ORDERED: MAGNESIUM HYDROX 2400MG/30ML ORAL SUSPENSION 30 ML CUP PO PRN (11:16)
[2021-02-13] MEDS ORDERED: ONDANSETRON *ODT* 4 MG TABLET SL PRN (11:16)
[2021-02-13] MEDS ORDERED: MENTHOL/PHENOL 1 EACH UD MM PRN (11:16)
[2021-02-13] MEDS ORDERED: ACETAMINOPHEN 325 MG TABLET (FP) PO PRN ×2 (11:16)
[2021-02-13] MEDS: NICOTINE 14 MG/24 HOURS TOPICAL PATCH TD SCH (12:31)
[2021-02-13] MEDS: chlordiazePOXIDE HCL 25 MG CAPSULE PO PRN (12:32)
[2021-02-13] MEDS: PRENATAL VITAMINS W/ FOLIC ACID TABLET (FP) PO SCH (12:32)
[2021-02-13] MEDS: ASPIRIN COATED 81 MG TABLET.EC PO SCH (12:34)
[2021-02-13] MEDS: hydrOXYzine PAMOATE 25 MG CAPSULE (FP) PO SCH ×3 (13:10→22:01)
[2021-02-13] MEDS: chlordiazePOXIDE HCL 25 MG CAPSULE PO SCH ×2 (17:04→22:01)
[2021-02-13] MEDS: METHOCARBAMOL 500 MG TABLET PO PRN (17:08)
[2021-02-13] MEDS ORDERED: MELATONIN 5 MG TABLETS PO SCH (22:00)
[2021-02-13] MEDS: ATORVASTATIN CA 40 MG TABLET (FP) PO SCH (22:01)
[2021-02-13] MEDS: THIAMINE HCL 100 MG TABLET (FP) PO SCH (22:01)
[2021-02-13] MEDS: MELATONIN 5 MG TABLETS PO PRN (22:02)
[2021-02-13] MEDS: SODIUM CHLORIDE NASAL SPRAY 44 ML BOTTLE NS PRN (22:54)
[2021-02-13] MEDS: HYDROCORTISONE 0.5% TOPICAL CREAM 30 GM TUBE TP PRN (22:54)
[2021-02-13] MEDS: IBUPROFEN 400 MG TABLET (FP) PO PRN (22:57)
[2021-02-14] MEDS: chlordiazePOXIDE HCL 25 MG CAPSULE PO SCH ×4 (04:27→22:07)
[2021-02-14] MEDS: hydrOXYzine PAMOATE 25 MG CAPSULE (FP) PO SCH ×5 (07:10→22:06)
[2021-02-14] MEDS: SODIUM CHLORIDE NASAL SPRAY 44 ML BOTTLE NS PRN ×2 (09:13→22:08)
[2021-02-14] MEDS: NIFEdipine E.R. 30 MG TABLET PO SCH (10:03)
[2021-02-14] MEDS: CITALOPRAM HYDROBROMIDE 20 MG TABLET PO SCH (10:03)
[2021-02-14] MEDS: ASPIRIN COATED 81 MG TABLET.EC PO SCH (10:03)
[2021-02-14] MEDS: PRENATAL VITAMINS W/ FOLIC ACID TABLET (FP) PO SCH (10:03)
[2021-02-14] MEDS: NICOTINE 14 MG/24 HOURS TOPICAL PATCH TD SCH (10:03)
[2021-02-14 10:06] LABS: HEMATOCRIT 40.3 % (32.4-45.2); HEMOGLOBIN 13.7 GM/dL (10.7-15.3); MCH 33.1 pg (25.7-33.7); MEAN CELL VOLUME 97.3 fl (80-96); MEAN PLT VOLUME 8.5 fl (7.5-11.1); PLATELET COUNT 374 K/MM3 (134-434); RBC 4.14 M/mm3 (3.60-5.2); RDW 15.4 % (11.6-15.6); WHITE BLOOD COUNT 10.2 K/mm3 (4.0-10.0)
[2021-02-14 10:11] LABS: POTASSIUM 3.7 mmol/L (3.5-5.1)
[2021-02-14 10:18] LABS: ALBUMIN 3.9 g/dl (3.4-5.0); BLOOD UREA NITROGEN 26.7 mg/dL (7-18)
[2021-02-14 10:22] LABS: CREATININE 1.4 mg/dL (0.55-1.3)
[2021-02-14 10:24] LABS: BILIRUBIN,TOTAL 0.8 mg/dL (0.2-1); TOT PROT 7.8 g/dl (6.4-8.2)
[2021-02-14] MEDS: IBUPROFEN 400 MG TABLET (FP) PO PRN (17:02)
[2021-02-14] MEDS: ATORVASTATIN CA 40 MG TABLET (FP) PO SCH (22:06)
[2021-02-14] MEDS: HYDROCORTISONE 0.5% TOPICAL CREAM 30 GM TUBE TP PRN (22:08)
[2021-02-14] MEDS: MELATONIN 5 MG TABLETS PO PRN (22:08)
[2021-02-14] MEDS: THIAMINE HCL 100 MG TABLET (FP) PO SCH (22:25)
[2021-02-15] MEDS: METHOCARBAMOL 500 MG TABLET PO PRN ×2 (01:04→21:59)
[2021-02-15] MEDS: chlordiazePOXIDE HCL 25 MG CAPSULE PO PRN (01:05)
[2021-02-15] MEDS: hydrOXYzine PAMOATE 25 MG CAPSULE (FP) PO SCH ×5 (05:31→21:58)
[2021-02-15] MEDS: chlordiazePOXIDE HCL 25 MG CAPSULE PO SCH ×4 (05:32→22:00)
[2021-02-15] MEDS: ASPIRIN COATED 81 MG TABLET.EC PO SCH (10:02)
[2021-02-15] MEDS: CITALOPRAM HYDROBROMIDE 20 MG TABLET PO SCH (10:02)
[2021-02-15] MEDS: NIFEdipine E.R. 30 MG TABLET PO SCH (10:02)
[2021-02-15] MEDS: PRENATAL VITAMINS W/ FOLIC ACID TABLET (FP) PO SCH (10:02)
[2021-02-15] MEDS: NICOTINE 14 MG/24 HOURS TOPICAL PATCH TD SCH (10:04)
[2021-02-15] MEDS: IBUPROFEN 400 MG TABLET (FP) PO PRN ×2 (10:04→16:47)
[2021-02-15] MEDS: SODIUM CHLORIDE NASAL SPRAY 44 ML BOTTLE NS PRN (10:05)
[2021-02-15] MEDS: THIAMINE HCL 100 MG TABLET (FP) PO SCH (21:58)
[2021-02-15] MEDS: MELATONIN 5 MG TABLETS PO PRN (21:58)
[2021-02-15] MEDS: ATORVASTATIN CA 40 MG TABLET (FP) PO SCH (21:58)
[2021-02-16] MEDS ORDERED: chlordiazePOXIDE HCL 10 MG CAPSULE PO PRN
[2021-02-16] MEDS: hydrOXYzine PAMOATE 25 MG CAPSULE (FP) PO SCH ×3 (05:51→13:09)
[2021-02-16] MEDS: chlordiazePOXIDE HCL 10 MG CAPSULE PO SCH ×2 (05:52→10:10)
[2021-02-16] MEDS: SODIUM CHLORIDE NASAL SPRAY 44 ML BOTTLE NS PRN ×2 (05:54→10:12)
[2021-02-16 06:08] LABS: SARS-CoV-2 NAA Not Detected (Not Detected)
[2021-02-16] MEDS: IBUPROFEN 400 MG TABLET (FP) PO PRN (08:47)
[2021-02-16] MEDS: CITALOPRAM HYDROBROMIDE 20 MG TABLET PO SCH (10:09)
[2021-02-16] MEDS: ASPIRIN COATED 81 MG TABLET.EC PO SCH (10:09)
[2021-02-16] MEDS: NICOTINE 14 MG/24 HOURS TOPICAL PATCH TD SCH (10:09)
[2021-02-16] MEDS: PRENATAL VITAMINS W/ FOLIC ACID TABLET (FP) PO SCH (10:09)
[2021-02-16] MEDS: NIFEdipine E.R. 30 MG TABLET PO SCH (10:09)
[2021-02-16] MEDS ORDERED: IBUPROFEN 600 MG TABLET (FP) PO PRN (10:53)
[2021-02-16 13:12] VITALS: BP 143/91; PULSE 83; TEMP 96.8
[2021-02-17] MEDS ORDERED: chlordiazePOXIDE HCL 10 MG CAPSULE PO SCH (05:00)
[2021-02-18] MEDS ORDERED: chlordiazePOXIDE HCL 10 MG CAPSULE PO ONE (05:00)
== END 2021-02-16 14:08 | disposition home or self-care (01) | DRG 773 ==
LOC: YASAS 09:59 → Y3N 11:55
PROVIDERS: ADMIT Allergy & Immunology; ATTEND Allergy & Immunology
PROC: HZ2ZZZZ Detoxification Services for Substance Abuse Treatment (ICD-10-PCS; principal; 2021-02-13)
DX: F10.230 Alcohol dependence with withdrawal, uncomplicated (principal); F11.20 Opioid dependence, uncomplicated; F13.20 Sedative, hypnotic or anxiolytic dependence, uncomplicated; F17.210 Nicotine dependence, cigarettes, uncomplicated; F19.280 Other psychoactive substance dependence with psychoactive substance-induced anxiety disorder; F19.282 Other psychoactive substance dependence with psychoactive substance-induced sleep disorder; F32.9 Major depressive disorder, single episode, unspecified; M48.02 Spinal stenosis, cervical region; I10 Essential (primary) hypertension; J44.9 Chronic obstructive pulmonary disease, unspecified; L40.8 Other psoriasis; Z62.810 Personal history of physical and sexual abuse in childhood; Z86.718 Personal history of other venous thrombosis and embolism; Z87.01 Personal history of pneumonia (recurrent); Z88.8 Allergy status to other drugs, medicaments and biological substances
CPT/HCPCS: 36415; 80053; 85027; 86780; C9803; U0003; U0005

== ENCOUNTER 2023-02-04 12:31 | Inpatient (IN) | payer OTHER ==
[2023-02-04 12:54] VITALS: BMI 29.0
[2023-02-04] MEDS ORDERED: NALOXONE HCL 0.4 MG/ML VIAL IM PRN (15:15)
[2023-02-04] MEDS ORDERED: BENZOCAINE/MENTHOL (CHLORASEPTIC ) LOZENGE MM PRN (15:15)
[2023-02-04] MEDS ORDERED: BENZONATATE 200 MG CAPSULE PO PRN (15:15)
[2023-02-04] MEDS ORDERED: ONDANSETRON *ODT* 4 MG TABLET SL PRN (15:15)
[2023-02-04] MEDS ORDERED: LOPERAMIDE HCL 2 MG CAPSULE PO PRN (15:15)
[2023-02-04] MEDS ORDERED: METHOCARBAMOL 500 MG TABLET PO PRN (15:15)
[2023-02-04] MEDS ORDERED: DICYCLOMINE HCL 10 MG CAPSULE PO PRN (15:15)
[2023-02-04] MEDS ORDERED: NALOXONE HCL (KLOXXADO) 8 MG SPRAY NS PRN (15:15)
[2023-02-04] MEDS ORDERED: MAGNESIUM HYDROX 2400MG/30ML ORAL SUSPENSION 30 ML CUP PO PRN (15:15)
[2023-02-04] MEDS ORDERED: POLYETHYLENE GLYCOL (HEALTHYLAX) 3350 17 GM PACKET PO PRN (15:15)
[2023-02-04] MEDS ORDERED: BISMUTH SUBSALICYLATE 524 MG/30 ML PO PRN (15:15)
[2023-02-04] MEDS ORDERED: guaiFENesin 600 MG TABLET.ER (FP) PO PRN (15:15)
[2023-02-04] MEDS ORDERED: MAG HYDROX/AL HYDROX/SIMETH 30 ML UNIT-DOSE CUP PO PRN (15:15)
[2023-02-04] MEDS ORDERED: LORazepam 2 MG TABLET ONE (15:38)
[2023-02-04] MEDS: LORazepam 2 MG TABLET PO SCH ×3 (15:40→22:38)
[2023-02-04] MEDS: NICOTINE 14 MG/24 HOURS TOPICAL PATCH TD SCH (15:41)
[2023-02-04] MEDS ORDERED: NICOTINE 14 MG/24 HOURS TOPICAL PATCH TD ONE (15:48)
[2023-02-04] MEDS: hydrOXYzine PAMOATE 25 MG CAPSULE (FP) PO PRN ×2 (16:00→22:37)
[2023-02-04] MEDS: LORazepam 1 MG TABLET PO PRN (20:36)
[2023-02-04] MEDS: MELATONIN 5 MG TABLETS PO SCH (22:37)
[2023-02-04] MEDS: THIAMINE HCL 100 MG TABLET (FP) PO SCH (22:37)
[2023-02-05] MEDS: LORazepam 2 MG TABLET PO SCH ×3 (05:24→16:58)
[2023-02-05] MEDS ORDERED: ALBUTEROL SO4 HFA INHALER IH PRN (09:48)
[2023-02-05] MEDS: ASPIRIN COATED 81 MG TABLET.EC PO SCH (10:04)
[2023-02-05] MEDS: PRENATAL VITAMINS W/ FOLIC ACID TABLET (FP) PO SCH (10:04)
[2023-02-05] MEDS: hydrOXYzine PAMOATE 25 MG CAPSULE (FP) PO PRN ×2 (10:05→17:00)
[2023-02-05] MEDS: NICOTINE 14 MG/24 HOURS TOPICAL PATCH TD SCH (10:05)
[2023-02-05] MEDS: NIFEdipine E.R. 90 MG TABLET PO SCH (10:34)
[2023-02-05 11:27] LABS: HEMATOCRIT 39.3 % (32.4-45.2); HEMOGLOBIN 13.9 GM/dL (10.7-15.3); MCH 33.8 pg (25.7-33.7); MCHC 35.3 g/dl (32.0-36.0); MEAN CELL VOLUME 95.7 fl (80-96); PLATELET COUNT 416 10^3/uL (134-434); RBC 4.11 M/mm3 (3.60-5.2); RDW 14.2 % (11.6-15.6); WHITE BLOOD COUNT 9.2 K/mm3 (4.0-10.0)
[2023-02-05 11:37] LABS: ALBUMIN 3.5 g/dl (3.4-5.0); BLOOD UREA NITROGEN 18.5 mg/dL (7-18); MAGNESIUM 1.5 mg/dL (1.8-2.4)
[2023-02-05 11:41] LABS: BILIRUBIN,TOTAL 1.3 mg/dL (0.2-1)
[2023-02-05] MEDS: METHOCARBAMOL 500 MG TABLET PO PRN ×2 (12:53→19:04)
[2023-02-05] MEDS: LORazepam 1 MG TABLET PO PRN ×2 (13:52→19:03)
[2023-02-05] MEDS: ATORVASTATIN CA 40 MG TABLET (FP) PO SCH (22:08)
[2023-02-05] MEDS: MELATONIN 5 MG TABLETS PO SCH (22:08)
[2023-02-05] MEDS: THIAMINE HCL 100 MG TABLET (FP) PO SCH (22:08)
[2023-02-06] MEDS: hydrOXYzine PAMOATE 25 MG CAPSULE (FP) PO PRN ×2 (03:01→17:08)
[2023-02-06] MEDS: LORazepam 1 MG TABLET PO SCH ×4 (05:15→22:04)
[2023-02-06] MEDS: FLUTICASONE PROP 0.05% 16 GM NASAL SPRAY NS SCH (10:04)
[2023-02-06] MEDS: NIFEdipine E.R. 90 MG TABLET PO SCH (10:04)
[2023-02-06] MEDS: PRENATAL VITAMINS W/ FOLIC ACID TABLET (FP) PO SCH (10:04)
[2023-02-06] MEDS: ASPIRIN COATED 81 MG TABLET.EC PO SCH (10:04)
[2023-02-06] MEDS: NICOTINE 14 MG/24 HOURS TOPICAL PATCH TD SCH (10:05)
[2023-02-06] MEDS ORDERED: POTASSIUM CHLORIDE ORAL LIQUID 20 MEQ/15 ML PO ONE ×2 (17:08→20:15)
[2023-02-06] MEDS: LACTULOSE 20 GM/30 ML UDC (FOR ORAL USE ONLY) PO SCH ×2 (18:23→22:04)
[2023-02-06] MEDS ORDERED: NICOTINE 10 MG CARTRIDGE (INHALER) IH PRN (20:19)
[2023-02-06] MEDS ORDERED: SUVOREXANT 10 MG TABLET PO PRN (22:00)
[2023-02-06] MEDS: THIAMINE HCL 100 MG TABLET (FP) PO SCH (22:04)
[2023-02-06] MEDS: POTASSIUM CHLORIDE ORAL LIQUID 20 MEQ/15 ML PO SCH (22:04)
[2023-02-06] MEDS: ATORVASTATIN CA 40 MG TABLET (FP) PO SCH (22:04)
[2023-02-06] MEDS: METHOCARBAMOL 500 MG TABLET PO PRN (22:05)
[2023-02-07] MEDS ORDERED: LORazepam 0.5 MG TABLET PO PRN
[2023-02-07] MEDS: LORazepam 0.5 MG TABLET PO SCH ×2 (05:22→10:49)
[2023-02-07 09:48] VITALS: BP 145/104; PULSE 101; RESP 18; TEMP 96.7
[2023-02-07] MEDS: ASPIRIN COATED 81 MG TABLET.EC PO SCH (10:02)
[2023-02-07] MEDS: NIFEdipine E.R. 90 MG TABLET PO SCH (10:02)
[2023-02-07] MEDS: POTASSIUM CHLORIDE ORAL LIQUID 20 MEQ/15 ML PO SCH (10:02)
[2023-02-07] MEDS: PRENATAL VITAMINS W/ FOLIC ACID TABLET (FP) PO SCH (10:03)
[2023-02-07] MEDS: LACTULOSE 20 GM/30 ML UDC (FOR ORAL USE ONLY) PO SCH (10:06)
[2023-02-07] MEDS: FLUTICASONE PROP 0.05% 16 GM NASAL SPRAY NS SCH (10:46)
[2023-02-07] MEDS: NICOTINE 14 MG/24 HOURS TOPICAL PATCH TD SCH (10:46)
[2023-02-08] MEDS ORDERED: LORazepam 0.5 MG TABLET PO ONE (05:00)
== END 2023-02-07 10:08 | disposition home or self-care (01) | DRG 775 ==
LOC: YASAS 12:31 → Y6N 14:08
PROVIDERS: ADMIT Allergy & Immunology; ATTEND Surgery
PROC: HZ2ZZZZ Detoxification Services for Substance Abuse Treatment (ICD-10-PCS; principal; 2023-02-04)
DX: F10.230 Alcohol dependence with withdrawal, uncomplicated (principal); F13.20 Sedative, hypnotic or anxiolytic dependence, uncomplicated; F12.20 Cannabis dependence, uncomplicated; F17.210 Nicotine dependence, cigarettes, uncomplicated; F19.280 Other psychoactive substance dependence with psychoactive substance-induced anxiety disorder; F19.282 Other psychoactive substance dependence with psychoactive substance-induced sleep disorder; F19.24 Other psychoactive substance dependence with psychoactive substance-induced mood disorder; E78.5 Hyperlipidemia, unspecified; J44.9 Chronic obstructive pulmonary disease, unspecified; R79.89 Other specified abnormal findings of blood chemistry; M48.02 Spinal stenosis, cervical region; M54.50 Low back pain, unspecified; G89.29 Other chronic pain; Z87.01 Personal history of pneumonia (recurrent)
CPT/HCPCS: 36415; 80053; 82140; 82607; 82746; 83735; 84132; 85027; 86780; 93005; 93010; C9803-CS; U0003; U0005

== ENCOUNTER 2023-03-14 22:48 | Inpatient (IN) | payer OTHER ==
[2023-03-14 23:30] VITALS: BMI 28.3
[2023-03-15] MEDS ORDERED: ALBUTEROL SO4 HFA INHALER IH PRN (00:36)
[2023-03-15] MEDS ORDERED: ACETAMINOPHEN 325 MG TABLET (FP) PO PRN (00:37)
[2023-03-15] MEDS ORDERED: NICOTINE POLACRILEX 2 MG GUM BUC PRN (00:37)
[2023-03-15] MEDS ORDERED: IBUPROFEN 600 MG TABLET (FP) PO PRN (00:37)
[2023-03-15] MEDS ORDERED: MAGNESIUM HYDROX 2400MG/30ML ORAL SUSPENSION 30 ML CUP PO PRN (00:37)
[2023-03-15] MEDS ORDERED: NALOXONE HCL (KLOXXADO) 8 MG SPRAY NS PRN (00:37)
[2023-03-15] MEDS ORDERED: BENZONATATE 200 MG CAPSULE PO PRN (00:37)
[2023-03-15] MEDS ORDERED: NALOXONE HCL 0.4 MG/ML VIAL IM PRN (00:37)
[2023-03-15] MEDS ORDERED: LORazepam 1 MG TABLET PO PRN (00:37)
[2023-03-15] MEDS ORDERED: guaiFENesin 600 MG TABLET.ER (FP) PO PRN (00:37)
[2023-03-15] MEDS ORDERED: IBUPROFEN 400 MG TABLET (FP) PO PRN (00:37)
[2023-03-15] MEDS ORDERED: ONDANSETRON *ODT* 4 MG TABLET SL PRN (00:37)
[2023-03-15] MEDS ORDERED: DICYCLOMINE HCL 10 MG CAPSULE PO PRN (00:37)
[2023-03-15] MEDS ORDERED: BISMUTH SUBSALICYLATE 524 MG/30 ML PO PRN (00:37)
[2023-03-15] MEDS ORDERED: LOPERAMIDE HCL 2 MG CAPSULE PO PRN (00:37)
[2023-03-15] MEDS ORDERED: POLYETHYLENE GLYCOL (HEALTHYLAX) 3350 17 GM PACKET PO PRN (00:37)
[2023-03-15] MEDS ORDERED: BENZOCAINE/MENTHOL (CHLORASEPTIC ) LOZENGE MM PRN (00:37)
[2023-03-15] MEDS ORDERED: MAG HYDROX/AL HYDROX/SIMETH 30 ML UNIT-DOSE CUP PO PRN (00:37)
[2023-03-15] MEDS ORDERED: LORazepam 2 MG TABLET PO ONE (01:00)
[2023-03-15] MEDS ORDERED: LORazepam 2 MG TABLET ONE ×2 (05:22→11:29)
[2023-03-15] MEDS: LORazepam 2 MG TABLET PO SCH ×4 (05:26→22:29)
[2023-03-15] MEDS ORDERED: SODIUM CHLORIDE NASAL SPRAY 44 ML BOTTLE NS PRN (08:47)
[2023-03-15] MEDS ORDERED: PRENATAL VITAMINS W/ FOLIC ACID TABLET (FP) PO ONE (09:43)
[2023-03-15] MEDS ORDERED: ASPIRIN 81 MG CHEWABLE TABLETS ONE (09:44)
[2023-03-15] MEDS ORDERED: NICOTINE 14 MG/24 HOURS TOPICAL PATCH TD ONE (09:45)
[2023-03-15] MEDS: PRENATAL VITAMINS W/ FOLIC ACID TABLET (FP) PO SCH (09:51)
[2023-03-15] MEDS: NICOTINE 14 MG/24 HOURS TOPICAL PATCH TD SCH (09:51)
[2023-03-15] MEDS: ASPIRIN COATED 81 MG TABLET.EC PO SCH (09:51)
[2023-03-15] MEDS: NIFEdipine E.R. 90 MG TABLET PO SCH (09:53)
[2023-03-15 11:30] LABS: HEMATOCRIT 36.4 % (32.4-45.2); MCH 34.5 pg (25.7-33.7); MCHC 35.8 g/dl (32.0-36.0); MEAN CELL VOLUME 96.2 fl (80-96); MEAN PLT VOLUME 9.1 fl (7.5-11.1); PLATELET COUNT 191 10^3/uL (134-434); RBC 3.78 M/mm3 (3.60-5.2); RDW 14.4 % (11.6-15.6); WHITE BLOOD COUNT 8.1 K/mm3 (4.0-10.0)
[2023-03-15 12:13] LABS: BLOOD UREA NITROGEN 19.1 mg/dL (7-18); CALCIUM 8.4 mg/dL (8.5-10.1)
[2023-03-15 12:14] LABS: ALBUMIN 3.2 g/dl (3.4-5.0)
[2023-03-15 12:17] LABS: CREATININE 0.9 mg/dL (0.55-1.3)
[2023-03-15 12:18] LABS: BILIRUBIN,TOTAL 1.6 mg/dL (0.2-1); TOT PROT 6.4 g/dl (6.4-8.2)
[2023-03-15] MEDS ORDERED: POTASSIUM CHLORIDE ORAL LIQUID 20 MEQ/15 ML PO ONE (15:15)
[2023-03-15] MEDS: MELATONIN 5 MG TABLETS PO SCH (22:29)
[2023-03-15] MEDS: ATORVASTATIN CA 40 MG TABLET (FP) PO SCH (22:29)
[2023-03-15] MEDS: THIAMINE HCL 100 MG TABLET (FP) PO SCH (22:29)
[2023-03-16] MEDS: LORazepam 1 MG TABLET PO SCH ×4 (05:32→22:18)
[2023-03-16] MEDS: ASPIRIN COATED 81 MG TABLET.EC PO SCH (10:18)
[2023-03-16] MEDS: PRENATAL VITAMINS W/ FOLIC ACID TABLET (FP) PO SCH (10:18)
[2023-03-16] MEDS: NICOTINE 14 MG/24 HOURS TOPICAL PATCH TD SCH (10:21)
[2023-03-16] MEDS: NIFEdipine E.R. 90 MG TABLET PO SCH (10:39)
[2023-03-16] MEDS: THIAMINE HCL 100 MG TABLET (FP) PO SCH (22:18)
[2023-03-16] MEDS: ATORVASTATIN CA 40 MG TABLET (FP) PO SCH (22:18)
[2023-03-16] MEDS: MELATONIN 5 MG TABLETS PO SCH (22:19)
[2023-03-17] MEDS ORDERED: LORazepam 0.5 MG TABLET PO PRN
[2023-03-17] MEDS: LORazepam 0.5 MG TABLET PO SCH ×4 (05:36→22:26)
[2023-03-17] MEDS: NIFEdipine E.R. 90 MG TABLET PO SCH (10:19)
[2023-03-17] MEDS: NICOTINE 14 MG/24 HOURS TOPICAL PATCH TD SCH (10:20)
[2023-03-17] MEDS: PRENATAL VITAMINS W/ FOLIC ACID TABLET (FP) PO SCH (10:20)
[2023-03-17] MEDS: ASPIRIN COATED 81 MG TABLET.EC PO SCH (10:20)
[2023-03-17] MEDS ORDERED: METHOCARBAMOL 500 MG TABLET PO ONE (13:00)
[2023-03-17] MEDS: SODIUM CHLORIDE NASAL SPRAY 44 ML BOTTLE NS SCH ×2 (14:38→21:52)
[2023-03-17] MEDS ORDERED: POTASSIUM CHLORIDE ORAL LIQUID 20 MEQ/15 ML PO ONE (17:00)
[2023-03-17] MEDS: ATORVASTATIN CA 40 MG TABLET (FP) PO SCH (21:52)
[2023-03-17] MEDS: MELATONIN 5 MG TABLETS PO SCH (21:52)
[2023-03-17] MEDS: THIAMINE HCL 100 MG TABLET (FP) PO SCH (21:52)
[2023-03-18] MEDS ORDERED: LORazepam 0.5 MG TABLET PO ONE (05:00)
[2023-03-18] MEDS: SODIUM CHLORIDE NASAL SPRAY 44 ML BOTTLE NS SCH (09:17)
[2023-03-18] MEDS: PRENATAL VITAMINS W/ FOLIC ACID TABLET (FP) PO SCH (09:17)
[2023-03-18] MEDS: NIFEdipine E.R. 90 MG TABLET PO SCH (09:17)
[2023-03-18] MEDS: NICOTINE 14 MG/24 HOURS TOPICAL PATCH TD SCH (09:17)
[2023-03-18] MEDS: ASPIRIN COATED 81 MG TABLET.EC PO SCH (09:17)
[2023-03-18 09:39] VITALS: BP 145/94; PULSE 100; RESP 20; TEMP 97.4
== END 2023-03-18 10:12 | disposition home or self-care (01) | DRG 775 ==
LOC: YASAS 22:48 → Y6N 03-15 11:03
PROVIDERS: ADMIT Allergy & Immunology; ATTEND Surgery
PROC: HZ2ZZZZ Detoxification Services for Substance Abuse Treatment (ICD-10-PCS; principal; 2023-03-15)
DX: F10.230 Alcohol dependence with withdrawal, uncomplicated (principal); F19.24 Other psychoactive substance dependence with psychoactive substance-induced mood disorder; E87.6 Hypokalemia; E78.5 Hyperlipidemia, unspecified; I10 Essential (primary) hypertension; J44.9 Chronic obstructive pulmonary disease, unspecified; L30.8 Other specified dermatitis; M54.50 Low back pain, unspecified; G89.29 Other chronic pain; Z87.01 Personal history of pneumonia (recurrent); Z86.73 Personal history of transient ischemic attack (TIA), and cerebral infarction without residual deficits; Z88.8 Allergy status to other drugs, medicaments and biological substances; Z86.718 Personal history of other venous thrombosis and embolism
CPT/HCPCS: 36415; 80053; 85027; 86780; 87811; C9803-CS; U0003; U0005

== ENCOUNTER 2025-01-20 12:06 | Inpatient (IN) | payer OTHER ==
[2025-01-20] MEDS ORDERED: POLYETHYLENE GLYCOL (HEALTHYLAX) 3350 17 GM PACKET PO PRN (13:14)
[2025-01-20] MEDS ORDERED: BISMUTH SUBSALICYLATE 524 MG/30 ML PO PRN (13:14)
[2025-01-20] MEDS ORDERED: ACETAMINOPHEN 325 MG TABLET (FP) PO PRN (13:14)
[2025-01-20] MEDS ORDERED: MAG HYDROX/AL HYDROX/SIMETH 30 ML UNIT-DOSE CUP PO PRN (13:14)
[2025-01-20] MEDS ORDERED: NICOTINE POLACRILEX 2 MG GUM BUC PRN (13:14)
[2025-01-20] MEDS ORDERED: MAGNESIUM HYDROX 2400MG/30ML ORAL SUSPENSION 30 ML CUP PO PRN (13:14)
[2025-01-20] MEDS ORDERED: guaiFENesin 600 MG TABLET.ER (FP) PO PRN (13:14)
[2025-01-20] MEDS ORDERED: NICOTINE POLACRILEX 2 MG LOZENGE BC PRN (13:14)
[2025-01-20] MEDS ORDERED: BENZONATATE 200 MG CAPSULE PO PRN (13:14)
[2025-01-20] MEDS ORDERED: IBUPROFEN 400 MG TABLET (FP) PO PRN (13:14)
[2025-01-20] MEDS ORDERED: NALOXONE (NARCAN) HCL 4 MG/0.1 ML SPRAY NS PRN (13:14)
[2025-01-20] MEDS ORDERED: BENZOCAINE/MENTHOL (CHLORASEPTIC ) LOZENGE MM PRN (13:14)
[2025-01-20] MEDS ORDERED: DICYCLOMINE HCL 10 MG CAPSULE PO PRN (13:14)
[2025-01-20] MEDS ORDERED: ONDANSETRON *ODT* 4 MG TABLET ONE (14:20)
[2025-01-20] MEDS ORDERED: propRANOLol HCL 10 MG TABLET ONE (14:20)
[2025-01-20] MEDS ORDERED: diazePAM 5 MG TABLET ONE (14:20)
[2025-01-20] MEDS: propRANOLol HCL 10 MG TABLET PO ONE (14:25)
[2025-01-20] MEDS: diazePAM 5 MG TABLET PO PRN (14:25)
[2025-01-20] MEDS: ONDANSETRON *ODT* 4 MG TABLET SL PRN (14:25)
[2025-01-20] MEDS: diazePAM 5 MG TABLET PO SCH (17:25)
[2025-01-20] MEDS: MELATONIN 5 MG TABLETS PO SCH (22:18)
[2025-01-20] MEDS: THIAMINE 100 MG TABLET PO SCH (22:18)
[2025-01-20] MEDS: ATORVASTATIN CA 80 MG TABLET (FP) PO SCH (22:18)
[2025-01-21] MEDS: PRENATAL VITAMINS W/ FOLIC ACID TABLET (FP) PO SCH (10:00)
[2025-01-21] MEDS: NIFEdipine E.R. 30 MG TABLET PO SCH (10:01)
[2025-01-21] MEDS: ASPIRIN COATED 81 MG TABLET.EC PO SCH (10:02)
[2025-01-21] MEDS: CITALOPRAM HYDROBROMIDE 20 MG TABLET PO SCH (11:38)
[2025-01-21] MEDS: chlordiazePOXIDE HCL 25 MG CAPSULE PO PRN (15:20)
[2025-01-21] MEDS: LOPERAMIDE HCL 2 MG CAPSULE PO PRN (15:21)
[2025-01-21] MEDS: chlordiazePOXIDE HCL 25 MG CAPSULE PO SCH (17:07)
[2025-01-21] MEDS: AMITRIPTYLINE HCL 25 MG TABLET PO SCH (22:01)
[2025-01-22] MEDS ORDERED: diazePAM 5 MG TABLET PO SCH (06:00)
[2025-01-22] MEDS: IBUPROFEN 600 MG TABLET (FP) PO PRN (06:01)
[2025-01-22] MEDS: SODIUM CHLORIDE NASAL SPRAY 44 ML BOTTLE NS PRN (10:06)
[2025-01-22] MEDS: ALBUTEROL SO4 HFA INHALER IH PRN (10:13)
[2025-01-22] MEDS: METHOCARBAMOL 500 MG TABLET PO PRN (17:23)
[2025-01-22] MEDS: hydrOXYzine PAMOATE 25 MG CAPSULE (FP) PO PRN (17:59)
[2025-01-23] MEDS: chlordiazePOXIDE HCL 25 MG CAPSULE PO SCH (05:49)
[2025-01-23] MEDS ORDERED: diazePAM 5 MG TABLET PO SCH (06:00)
[2025-01-24] MEDS ORDERED: chlordiazePOXIDE HCL 10 MG CAPSULE PO PRN
[2025-01-24] MEDS: chlordiazePOXIDE HCL 10 MG CAPSULE PO SCH (04:25)
[2025-01-24] MEDS ORDERED: diazePAM 5 MG TABLET PO ONE (06:00)
[2025-01-24 06:08] VITALS: PULSE 72
[2025-01-24 09:05] VITALS: BP 118/74; RESP 16; TEMP 97.4
[2025-01-25] MEDS ORDERED: chlordiazePOXIDE HCL 10 MG CAPSULE PO SCH (05:00)
[2025-01-26] MEDS ORDERED: chlordiazePOXIDE HCL 10 MG CAPSULE PO ONE (05:00)
== END 2025-01-24 11:25 | disposition home or self-care (01) | DRG 775 ==
LOC: YASAS 12:06 → Y3N 14:09
PROVIDERS: ADMIT Allergy & Immunology; ATTEND Allergy & Immunology
PROC: HZ2ZZZZ Detoxification Services for Substance Abuse Treatment (ICD-10-PCS; principal; 2025-01-20)
DX: F10.230 Alcohol dependence with withdrawal, uncomplicated (principal); F13.20 Sedative, hypnotic or anxiolytic dependence, uncomplicated; F12.20 Cannabis dependence, uncomplicated; F32.9 Major depressive disorder, single episode, unspecified; E78.5 Hyperlipidemia, unspecified; I10 Essential (primary) hypertension; J44.9 Chronic obstructive pulmonary disease, unspecified; Z62.810 Personal history of physical and sexual abuse in childhood
CPT/HCPCS: 80305; 80307; 93005; 93010; Q0162